=== PATIENT | female | born 1950 | race Caucasian/White ===

== ENCOUNTER 2018-08-21 20:35 | Emergency (ER) | payer MEDICARE ==
[~2018-08-21] VITALS: Ht 167.6 cm; Wt 80.4 kg
[2018-08-21 21:44] LABS: HEMATOCRIT 45.7 % (37.0-47.0); HEMOGLOBIN 14.9 g/dl (12.0-16.0); IMMATURE GRANULOCYTES 1.6 % (0.0-5.0); MEAN CELL VOLUME 90.9 fL CALC (80.0-100.0); MEAN CORPUSCULAR HGB 29.6 pG CALC (26.0-32.0); MEAN CORPUSCULAR HGB CONC 32.6 g/L CALC (32.0-36.0); NEUT# 3.98 thou/uL (2.00-7.15); RED BLOOD COUNT 5.03 mill/uL (4.20-5.60); RED CELL DISTRI WIDTH 14.6 % (11.5-15.5)
[2018-08-21 21:47] LABS: URINE BILIRUBIN - DIPSTICK NEGATIVE (NEGATIVE); URINE BLOOD DIPSTICK SMALL (NEGATIVE); URINE COLOR YELLOW; URINE GLUCOSE - DIPSTICK NEGATIVE (NEGATIVE); URINE KETONE NEGATIVE (NEGATIVE); URINE LEUK ESTERASE TRACE (NEGATIVE); URINE NITRITE - DIPSTICK NEGATIVE (Negative); URINE PH 5.5 (4.5-8.0); URINE PROTEIN - DIPSTICK NEGATIVE (NEG-TRACE); URINE UROBILINOGEN - DIPSTICK 0.2 E.U./dL (0.2)
[2018-08-21 22:01] LABS: URINE SQUAMOUS EPITHELIAL CELL FEW EPI/hpf (0-FEW)
[2018-08-21 22:07] LABS: ALBUMIN 4.4 g/dL (3.2-5.0); ALKALINE PHOSPHATASE 130 u/l (38-126); ANION GAP 15 (6-22 (CALC)); BILIRUBIN, TOTAL 0.4 mg/dL (0.0-1.4); BUN 19 mg/dL (8-23); BUN/CREATININE RATIO 21 (12-20 (CALC)); CARBON DIOXIDE 25 mmol/l (22-30); CHLORIDE 104 mmol/l (95-108); CREATININE 0.9 mg/dL (0.5-1.0); GFR > 60 ML/MIN (>=60 (CALC)); GFR FOR AFR.AMER. > 60 ML/MIN (>=60 (CALC)); POTASSIUM 4.1 mmol/l (3.5-5.1); SGOT/AST 20 u/l (9-36); SODIUM 140 mmol/l (137-146); TOTAL PROTEIN 7.4 g/dL (6.3-8.2)
[2018-08-22 05:12] VITALS: BP 110/53
== END 2018-08-22 05:11 | disposition short-term general hospital (02) ==
LOC: ED 20:35 → ED-I 08-22 03:40 → ED 08-22 05:11
PROVIDERS: Emergency Medicine
DX: R10.9 Unspecified abdominal pain (principal); K80.20 Calculus of gallbladder without cholecystitis without obstruction; R00.0 Tachycardia, unspecified; N28.89 Other specified disorders of kidney and ureter; R93.5 Abnormal findings on diagnostic imaging of other abdominal regions, including retroperitoneum
CPT/HCPCS: Q9967

== ENCOUNTER 2024-10-24 18:53 | Emergency (ER) | payer MEDICARE ==
[~2024-10-24] VITALS: Ht 167.6 cm; Wt 81.0 kg
[2024-10-24 19:25] VITALS: BP 148/90
[2024-10-24 19:26] LABS: URINE BILIRUBIN - DIPSTICK Negative (NEGATIVE); URINE BLOOD DIPSTICK Moderate (NEGATIVE); URINE GLUCOSE - DIPSTICK Negative (NEGATIVE); URINE KETONE Trace mg/dL (NEGATIVE); URINE LEUK ESTERASE Negative (NEGATIVE); URINE NITRITE - DIPSTICK Negative (Negative); URINE PH 5.5 (4.5-8.0); URINE PROTEIN - DIPSTICK 100 mg/dL (NEG-TRACE); URINE SPECIFIC GRAVITY >=1.030
[2024-10-24 19:28] LABS: URINE COLOR Yellow
[2024-10-24 19:30] VITALS: BP 161/84
[2024-10-24 19:33] LABS: URINE BACTERIA FEW hpf; URINE MUCUS FEW hpf (NONE-FEW); URINE SQUAMOUS EPITHELIAL CELL FEW EPI/hpf (0-FEW)
[2024-10-24] MEDS ORDERED: SODIUM CHLORIDE 0.9% 1,000 ML IV ONE (19:40)
[2024-10-24] MEDS ORDERED: ACETAMINOPHEN 500 MG TAB PO ONE (19:40)
[2024-10-24 20:08] LABS: BASO% 0.3 % (0-3); EOS% 0.7 % (0-8); HEMATOCRIT 39.2 % (37.0-47.0); HEMOGLOBIN 12.5 g/dl (12.0-16.0); IMMATURE GRANULOCYTES 0.3 % (0.0-5.0); LYMPH% 26.6 % (15-41); MEAN CELL VOLUME 89.3 fL CALC (80.0-100.0); MEAN CORPUSCULAR HGB 28.5 pG CALC (26.0-32.0); MEAN CORPUSCULAR HGB CONC 31.9 g/dL CAL (32.0-36.0); MONO% 10.6 % (2-13); NEUT# 7.08 thou/uL (2.00-7.15); NEUT% 61.5 % (42-76); RED BLOOD COUNT 4.39 mill/uL (4.20-5.60); RED CELL DISTRI WIDTH 13.3 % (11.5-15.5)
[2024-10-24 20:17] LABS: CREATININE 0.6 mg/dL (0.5-1.0); POTASSIUM 3.9 mmol/l (3.5-5.1)
[2024-10-24] MEDS ORDERED: BACTRIM DS1 TAB PO (20:57)
[2024-10-24 20:58] VITALS: BP 129/65
[2024-10-24] MEDS ORDERED: SULFAMETHOXAZOLE W/TRIMETHOPRI 1 COMBO TAB PO ONE (21:00)
[2024-10-24 21:01] VITALS: BP 122/52
[2024-10-24 21:10] VITALS: BP 122/52
== END 2024-10-24 21:10 | disposition home or self-care (01) ==
LOC: ED 18:53
PROVIDERS: Family Medicine; Nurse Practitioner
DX: N30.00 Acute cystitis without hematuria (principal); K80.20 Calculus of gallbladder without cholecystitis without obstruction; E78.5 Hyperlipidemia, unspecified; Z87.442 Personal history of urinary calculi

== ENCOUNTER 2024-11-16 06:16 | Emergency (ER) | payer MEDICARE ==
[~2024-11-16] VITALS: Ht 167.6 cm; Wt 86.0 kg
[~2024-11-16 06:16] MED LIST: BACTRIM DS1 TAB PO
[2024-11-16] MEDS ORDERED: PROTONIX40 M2 PO (06:23)
[2024-11-16] MEDS ORDERED: CIPROFLOXACN500 MG PO (06:24)
[2024-11-16] MEDS ORDERED: METRONIDAZOLE500 MG PO (06:24)
[2024-11-16] MEDS ORDERED: HYDROmorphone HCL 2 MG/AMP IV ONE ×2 (06:25→11:30)
[2024-11-16] MEDS ORDERED: SODIUM CHLORIDE 0.9% 1,000 ML IV ONE (06:25)
[2024-11-16 07:12] LABS: ALBUMIN 3.9 g/dL (3.2-5.0); CREATININE 0.6 mg/dL (0.5-1.0); TOTAL PROTEIN 7.3 g/dL (6.3-8.2)
[2024-11-16 07:15] LABS: BILIRUBIN, TOTAL 0.7 mg/dL (0.02-1.3)
[2024-11-16 07:17] LABS: BASO% 0.5 % (0-3); EOS% 0.2 % (0-8); HEMATOCRIT 36.8 % (37.0-47.0); HEMOGLOBIN 11.9 g/dl (12.0-16.0); IMMATURE GRANULOCYTES 1.5 % (0.0-5.0); LYMPH% 30.1 % (15-41); MEAN CORPUSCULAR HGB 27.8 pG CALC (26.0-32.0); MEAN CORPUSCULAR HGB CONC 32.3 g/dL CAL (32.0-36.0); MONO% 9.6 % (2-13); NEUT# 10.41 thou/uL (2.00-7.15); NEUT% 58.1 % (42-76); RED BLOOD COUNT 4.28 mill/uL (4.20-5.60); RED CELL DISTRI WIDTH 13.7 % (11.5-15.5)
[2024-11-16 07:23] LABS: ACT PARTIAL THROMBO TIME 26.5 SECONDS (20.0-32.5)
[2024-11-16 07:26] LABS: PROTHROMBIN TIME 11.2 SECONDS (9.0-12.5)
[2024-11-16] MEDS ORDERED: MORPHINE SULFATE 4 MG/ML VIAL IV ONE ×2 (07:35→09:55)
[2024-11-16] MEDS ORDERED: ONDANSETRON HCl 4 MG/2 ML SDV IV ONE (07:35)
[2024-11-16] MEDS ORDERED: PIPERACILLIN Sodium-Tazobactam 3.375 GM in SODIUM CHLORIDE 0.9% 100 ML IV ONE (07:45)
[2024-11-16 07:51] LABS: D-DIMER 8.64 mg/L (0.19-0.60)
[2024-11-16 09:05] LABS: URINE BILIRUBIN - DIPSTICK Negative (NEGATIVE); URINE BLOOD DIPSTICK Small (NEGATIVE); URINE GLUCOSE - DIPSTICK Negative (NEGATIVE); URINE KETONE 15 mg/dL (NEGATIVE); URINE LEUK ESTERASE Negative (NEGATIVE); URINE NITRITE - DIPSTICK Negative (Negative); URINE PROTEIN - DIPSTICK 30 mg/dL (NEG-TRACE)
[2024-11-16 09:17] LABS: URINE COLOR Yellow
[2024-11-16 09:23] LABS: URINE AMORPH SEDIMENT FEW hpf (NONE-FEW); URINE WBC 0-2 WBC/hpf (0-5)
[2024-11-16 09:24] LABS: URINE SQUAMOUS EPITHELIAL CELL FEW EPI/hpf (0-FEW)
[2024-11-16] MEDS ORDERED: Heparin SODIUM (Porcine) 500 ML IV ONE (09:55)
[2024-11-16] MEDS ORDERED: Heparin SODIUM (Porcine) 5,000 UNITS/ML SDV IV ONE (09:55)
[2024-11-16] MEDS ORDERED: HYDROmorphone HCL 2 MG/AMP IM ONE ×2 (11:40→13:30)
[2024-11-16] MEDS ORDERED: PIPERACILLIN Sodium-Tazobactam 3.375 GM in SODIUM CHLORIDE 0.9% 100 ML IV SCH (14:30)
[2024-11-16 18:36] VITALS: BP 122/57
== END 2024-11-16 18:10 ==
LOC: ED 06:16
PROVIDERS: Emergency Medicine; Family Medicine
DX: I26.99 Other pulmonary embolism without acute cor pulmonale (principal); J18.9 Pneumonia, unspecified organism; E78.5 Hyperlipidemia, unspecified; Z90.49 Acquired absence of other specified parts of digestive tract
CPT/HCPCS: J1171; J1644; J2405; J2543; Q9967